=== PATIENT | male | born 1955 | race Caucasian/White ===

== ENCOUNTER 2021-08-03 18:48 | Emergency (ER) | payer OTHER, SELFPAY ==
[2021-08-03 19:35] VITALS: BP 139/87; PULSE 92; RESP 20; TEMP 37.4; O2SAT 95
[2021-08-04 05:27] LABS: Influenza A, PCR Not Detected (NotDetected); Influenza B, PCR Not Detected (NotDetected)
[2021-08-04 06:28] LABS: Coronavirus 19, PCR Detected (NotDetected)
== END 2021-08-03 19:42 | disposition left against medical advice (07) ==
LOC: ER 19:17
PROVIDERS: Emergency Provider Family Medicine; PCP Family Medicine
DX: U07.1 COVID-19 (principal)
CPT/HCPCS: 99211; C9803; U0003; U0005

== ENCOUNTER → 2021-08-04 04:25 | Outpatient (CLI) | payer OTHER, SELFPAY | PROVIDERS: Visit Provider Emergency Medicine | DX: Z20.822 Contact with and (suspected) exposure to COVID-19 (principal); U07.1 COVID-19 ==

== ENCOUNTER → 2021-08-06 14:31 | Outpatient (CLI) | payer OTHER, SELFPAY | PROVIDERS: Visit Provider Family Medicine | DX: S50.812A Abrasion of left forearm, initial encounter (principal); W55.03XA Scratched by cat, initial encounter | CPT/HCPCS: 87070; 87077; 87186; 87205 ==

== ENCOUNTER → 2021-10-29 17:58 | Outpatient (CLI) | payer OTHER, SELFPAY ==
[2021-10-29 18:44] LABS: Basophils % 0.6 % (0.1-2.0); Eosinophils # 0.3 K/mm3 (0.0-0.4); Eosinophils % 4.6 % (0.1-12.0); Hematocrit 42.9 % (42.0-52.0); Lymphocytes # 1.6 K/mm3 (0.7-4.5); Lymphocytes % 27.6 % (10-50); Mean Corpuscular HGB Conc 32.7 g/dL (31.8-35.4); Mean Corpuscular Hemoglobin 30.8 pg (27.0-31.2); Mean Platelet Volume 8.8 fl (7.4-10.4); Monocytes # 0.4 K/mm3 (0.1-1.0); Monocytes % 6.2 % (1.7-9.3); Neutrophils # 3.4 K/mm3 (1.8-7.8); Platelet Count 264 K/mm3 (142-424); Red Blood Count 4.57 M/mm3 (4.60-6.20); Red Cell Distribution Width 13.7 % (11.5-17.5); White Blood Count 5.6 K/mm3 (4.8-10.8)
[2021-10-29 19:09] LABS: Alanine Aminotransferase 20 U/L (12-78); Albumin Level 4.2 g/dl (3.5-5.0); Albumin/Globulin Ratio 1.8 (1.1-1.8); Alkaline Phosphatase 67 U/L (38-126); Anion Gap 8.6 mEq/L (5-15); Aspartate Amino Transferase 26 U/L (17-59); Bilirubin,Total 0.3 mg/dl (0.2-1.3); Blood Urea Nitrogen 21 mg/dl (9-20); Calcium 9.7 mg/dl (8.4-10.2); Carbon Dioxide 31 mmol/L (22.0-30.0); Chloride 104 mmol/L (98-107); Chol/HDL Ratio 4.2 (1-3.5); Cholesterol 173 mg/dl (140-200); Estimated Glomerular Filt Rate 74 ml/min (>60); GFR (African American) 90 ML/MIN (>60); Globulin 2.4 g/dL (1.3-3.2); Glucose 76 mg/dl (74-100); HDL Cholesterol 41 mg/dl (40-60); Potassium 4.6 mmoL/L (3.5-5.1); Sodium 139 mmol/L (136-145); Total Protein,Serum 6.6 g/dl (6.3-8.2); Triglycerides 184 mg/dl (30-150); VLDL Cholesterol 37 mg/dL (0-40)
[2021-10-29 19:20] LABS: Direct LDL Cholesterol 95.65 mg/dL (100-129)
[2021-10-29 19:39] LABS: Prostate Specific Ag Screen 2.5 ng/ml (0.0-4.0); Thyroid Stimulating Hormone 0.81 uIU/mL (0.465-4.68)
== END ==
PROVIDERS: Visit Provider Family Medicine
DX: Z00.00 Encounter for general adult medical examination without abnormal findings (principal); Z12.5 Encounter for screening for malignant neoplasm of prostate; Z79.899 Other long term (current) drug therapy
CPT/HCPCS: 80053; 80061; 84443; 85025; G0103

== ENCOUNTER 2022-02-10 16:30 | Outpatient (RCR) | payer OTHER, SELFPAY | END 2022-02-10 16:35 | disposition home or self-care (01) | LOC: PT 16:30 | PROVIDERS: Visit Provider Orthopaedic Surgery | DX: M17.12 Unilateral primary osteoarthritis, left knee (principal); Z96.652 Presence of left artificial knee joint | CPT/HCPCS: 97010; 97014; 97016; 97110; 97140; 97163; 97164; 97760; G0283 ==

== ENCOUNTER → 2022-07-13 11:02 | Outpatient (CLI) | payer MEDICARE, SELFPAY ==
[2022-07-13 11:09] LABS: Coronavirus 19, PCR Not Detected (NotDetected); Influenza A, PCR Not Detected (NotDetected); Influenza B, PCR Not Detected (NotDetected)
== END ==
PROVIDERS: PCP Family Medicine; Visit Provider Surgery
DX: D49.89 Neoplasm of unspecified behavior of other specified sites (principal); Z01.812 Encounter for preprocedural laboratory examination; Z20.822 Contact with and (suspected) exposure to COVID-19
CPT/HCPCS: C9803; U0003; U0005

== ENCOUNTER 2022-07-14 06:53 | Day surgery (SDC) | payer MEDICARE, SELFPAY ==
[2022-07-14 07:09] VITALS: BP 147/98; PULSE 75; RESP 18; TEMP 36.6; O2SAT 93; BMI 39.0
--- NOTE | 2022-07-14 08:00 | EXP.OP.NOTE ---
Date of procedure: 07/14/22 Pre-op Diagnosis:: Skin neoplasm of uncertain behavior (1.5 cm) of left upper chest Post-op Diagnosis:: Same Procedure performed:: Excision of 1.5 cm left upper chest skin lesion Surgeon:: Angel Rodriguez MD Anesthesia: local Estimated blood loss (mL): 10 Operative findings:: Skin lesion excised with 1 mm margin Operative note:: After informed consent was obtained the patient was taken to the procedure room. He was maintained in the supine position. His left upper chest/lower neck was prepped and draped in a sterile fashion. After infiltration of local anesthetic an elliptical incision was made around the lesion. A 1 mm margin was obtained. The deep subcutaneous tissue was sharply dissected with scalpel. The lesion was marked for margin with nylon suture (short superior/long lateral) prior to being passed off for pathologic evaluation. Electrocautery was utilized to achieve hemostasis. Skin was reapproximated with interrupted 4-0 nylon. Dressings were applied and the patient was discharged in stable condition. Condition: stable Disposition: no change Complications:: No immediate
[2022-07-14 08:25] VITALS: BP 119/71; PULSE 71; RESP 18; TEMP 36.6; O2SAT 100
== END 2022-07-14 08:15 | disposition home or self-care (01) ==
PROVIDERS: PCP Family Medicine; Visit Provider Surgery
DX: C44.519 Basal cell carcinoma of skin of other part of trunk (principal); I10 Essential (primary) hypertension; Z79.899 Other long term (current) drug therapy
CPT/HCPCS: 11602; 88305

== ENCOUNTER → 2022-10-04 14:38 | Outpatient (POV) | payer MEDICARE, SELFPAY | PROVIDERS: Visit Provider Dermatology | DX: Z00.00 Encounter for general adult medical examination without abnormal findings (principal) ==

== ENCOUNTER → 2023-02-14 14:13 | Outpatient (CLI) | payer MEDICARE, SELFPAY ==
[2023-02-14 19:50] LABS: Basophils # 0.1 K/mm3 (0-0.2); Eosinophils # 0.1 K/mm3 (0.0-0.4); Eosinophils % 2.7 % (0.1-12.0); Hematocrit 44.5 % (42.0-52.0); Hemoglobin 14.3 g/dL (14.1-18.0); Lymphocytes # 1.2 K/mm3 (0.7-4.5); Lymphocytes % 23.2 % (10-50); Mean Corpuscular HGB Conc 32.1 g/dL (31.8-35.4); Mean Corpuscular Hemoglobin 30.3 pg (27.0-31.2); Mean Corpuscular Volume 94.4 fl (80-94); Mean Platelet Volume 9.5 fl (7.4-10.4); Monocytes # 0.4 K/mm3 (0.1-1.0); Monocytes % 7.1 % (1.7-9.3); Neutrophils # 3.4 K/mm3 (1.8-7.8); Platelet Count 264 K/mm3 (142-424); Red Blood Count 4.72 M/mm3 (4.60-6.20); Red Cell Distribution Width 13.9 % (11.5-17.5); White Blood Count 5.2 K/mm3 (4.8-10.8)
[2023-02-14 20:56] LABS: Alanine Aminotransferase 20 U/L (12-78); Albumin Level 4.6 g/dl (3.5-5.0); Albumin/Globulin Ratio 1.8 (1.1-1.8); Alkaline Phosphatase 65 U/L (38-126); Anion Gap 12.7 mEq/L (5-15); Aspartate Amino Transferase 31 U/L (17-59); Bilirubin,Total 0.7 mg/dl (0.2-1.3); Blood Urea Nitrogen 14 mg/dl (9-20); Calcium 9.4 mg/dl (8.4-10.2); Carbon Dioxide 29 mmol/L (22.0-30.0); Chloride 100 mmol/L (98-107); Chol/HDL Ratio 5.5 (1-3.5); Cholesterol 164 mg/dl (140-200); Estimated Glomerular Filt Rate 84 ml/min (>60); GFR (African American) 101 ML/MIN (>60); Globulin 2.5 g/dL (1.3-3.2); Glucose 79 mg/dl (74-100); HDL Cholesterol 30 mg/dl (40-60); Potassium 4.7 mmoL/L (3.5-5.1); Sodium 137 mmol/L (136-145); Total Protein,Serum 7.1 g/dl (6.3-8.2); Triglycerides 120 mg/dl (30-150); VLDL Cholesterol 24 mg/dL (0-40)
[2023-02-14 21:07] LABS: Direct LDL Cholesterol 97.13 mg/dL (100-129)
[2023-02-14 21:29] LABS: Prostate Specific Ag Screen 2.7 ng/ml (0.0-4.0); Thyroid Stimulating Hormone 1.18 uIU/mL (0.465-4.68)
== END ==
PROVIDERS: PCP Family Medicine; Visit Provider Family Medicine
DX: C44.91 Basal cell carcinoma of skin, unspecified (principal); U07.1 COVID-19; R03.0 Elevated blood-pressure reading, without diagnosis of hypertension; R79.89 Other specified abnormal findings of blood chemistry; Z12.5 Encounter for screening for malignant neoplasm of prostate
CPT/HCPCS: 80053; 80061; 84443; 85025; G0103

== ENCOUNTER 2023-03-22 11:00 | Outpatient (RCR) | payer OTHER, SELFPAY | END 2023-03-22 11:05 | disposition home or self-care (01) | LOC: PT 11:00 | PROVIDERS: Visit Provider Orthopaedic Surgery | DX: M25.562 Pain in left knee (principal); Z96.652 Presence of left artificial knee joint | CPT/HCPCS: 97010; 97014; 97110; 97140; 97163; 97530; G0283 ==

== ENCOUNTER 2024-04-12 09:46 | Outpatient (CLI) | payer MEDICARE, SELFPAY ==
[2024-04-12 18:22] LABS: Basophils % 0.7 % (0.1-2.0); Eosinophils # 0.2 K/mm3 (0.0-0.4); Eosinophils % 4.4 % (0.1-12.0); Hemoglobin 15.1 g/dL (14.1-18.0); Lymphocytes # 1.2 K/mm3 (0.7-4.5); Lymphocytes % 23.7 % (10-50); Mean Corpuscular HGB Conc 32.7 g/dL (31.8-35.4); Mean Corpuscular Hemoglobin 30.9 pg (27.0-31.2); Mean Corpuscular Volume 94.6 fl (80-94); Mean Platelet Volume 9.9 fl (7.4-10.4); Monocytes # 0.4 K/mm3 (0.1-1.0); Monocytes % 7.8 % (1.7-9.3); Neutrophils # 3.3 K/mm3 (1.8-7.8); Neutrophils % 63.4 % (37.0-80.0); Platelet Count 247 K/mm3 (142-424); Red Blood Count 4.87 M/mm3 (4.60-6.20); Red Cell Distribution Width 13.9 % (11.5-17.5); White Blood Count 5.3 K/mm3 (4.8-10.8)
[2024-04-12 18:40] LABS: Alanine Aminotransferase 15 U/L (12-78); Albumin Level 4.4 g/dl (3.5-5.0); Albumin/Globulin Ratio 1.6 (1.1-1.8); Alkaline Phosphatase 58 U/L (38-126); Anion Gap 15.4 mEq/L (5-15); Aspartate Amino Transferase 22 U/L (17-59); Bilirubin,Total 0.7 mg/dl (0.2-1.3); Blood Urea Nitrogen 21 mg/dl (9-20); Calcium 9.9 mg/dl (8.4-10.2); Carbon Dioxide 26 mmol/L (22.0-30.0); Chloride 103 mmol/L (98-107); Cholesterol 203 mg/dl (140-200); Estimated Glomerular Filt Rate 74 ml/min (>60); GFR (African American) 89 ML/MIN (>60); Globulin 2.7 g/dL (1.3-3.2); Glucose 86 mg/dl (74-100); HDL Cholesterol 41 mg/dl (40-60); Potassium 4.4 mmoL/L (3.5-5.1); Sodium 140 mmol/L (136-145); Total Protein,Serum 7.1 g/dl (6.3-8.2); Triglycerides 125 mg/dl (30-150); VLDL Cholesterol 25 mg/dL (0-40)
[2024-04-12 19:03] LABS: Direct LDL Cholesterol 111.09 mg/dL (100-129)
[2024-04-12 19:12] LABS: Thyroid Stimulating Hormone 1.42 uIU/mL (0.465-4.68)
== END 2024-04-12 23:59 | disposition home or self-care (01) ==
LOC: LAB.DROPOF 04-16 09:47
PROVIDERS: PCP Family Medicine; Visit Provider Family Medicine
DX: C44.91 Basal cell carcinoma of skin, unspecified; Z12.5 Encounter for screening for malignant neoplasm of prostate; E07.9 Disorder of thyroid, unspecified; E78.5 Hyperlipidemia, unspecified
CPT/HCPCS: 80053; 80061; 84443; 85025; G0103

== ENCOUNTER 2024-09-10 06:21 | Day surgery (SDC) | payer MEDICARE, SELFPAY ==
[2024-09-06 14:14] VITALS: BMI 35.2
[2024-09-10 06:34] VITALS: BP 163/101; PULSE 77; RESP 18; TEMP 36.2; O2SAT 97
[2024-09-10] MEDS: LACTATED RINGERS 1000ML 1,000 ML 25 ML IV (06:43)
--- NOTE | 2024-09-10 07:07 | P.PCN_ITS ---
Procedure: Date: 09/10/24 Patient Date of :: 1955 Procedure Performed:: Colonoscopy with polypectomy Indications:: History of colon polyps Performing Provider:: Angel Rodriguez MD Referring Provider:: . Sedation:: Monitored anesthesia care Procedure:: After informed consent was obtained the patient was taken to the endoscopy suite. Sedation ensued after the patient was transferred to the left lateral d ecubitus position. Pulse, blood pressure, and oxygen saturation were monitored throughout the procedure. Digital rectal exam revealed no significant abnormality. The colonoscope was placed in position. The entire colon was evaluated. The colonoscope was carefully removed and the patient was transferred to recovery in stable condition. Please see findings and specimens below for detail. Findings:: Bowel preparation moderate Moderate spasticity Moderate tortuosity Hemorrhoidal cushions Sigmoid diverticulosis Polyps (see specimens) Specimens:: 3 adjacent periappendiceal polyps (cold biopsy forceps) Complex partially-pedunculated polyp at 60 cm (cold snare) Recommendations:: Timing of repeat colonoscopy is pending pathology will likely be between 3-5 years. Complications:: No immediate Estimated blood obtained (mL): 1 Colonoscopy Component Colonoscopy Component Was a colonoscopy performed during today's procedure?: Yes Recommended follow up colonoscopy of at least 10 years?: No If no, follow up colonoscopy recommended in ___ years?: (See above) Reason for not recommending >/= 10 yr follow-up interval?: (See above)
--- NOTE | 2024-09-10 07:13 | P.PNANES_ITS ---
[facility] Disclaimer: The information contained in this section may have been updated after the patient was seen, as this information can be updated by other users. Medical History Basal cell carcinoma History of COVID-19 Osteoarthritis Edema Hypertension Surgical History History of colonoscopy History of knee replacement History of appendectomy Family History Other Family history of arthritis Family history of diabetes mellitus type II Family history of hypertension Family history of stroke Social History (Updated 09/10/24 @ 06:41 by Katy Simon RN) Smoking Status: Former smoker alcohol intake: never substance use type: denies use current occupational status: retired Travel in the last 8 weeks: Inside the [place] caffeine: Yes [facility] Anesthesia Checklist Patient Identification Patient Identification: Arm Band and Verbal (Name & ) Structural Data Admitted From: Home Planned Operative Procedure/s: Colonoscopy Consent for Planned Operative Procedure(s) Verified: Yes Verified Documents: Surgical Consent and History and Physical NPO Status Verified Time NPO: 02:45 Chart Verification Results Verified: CBC and BMP Additional verifications Patient : No Anesthesia Reactions: No Cardiovascular Assessment Heart Sounds: S1 & S2 Pulse Rhythm: Irregular Peripheral Edema: No Airway Assessment Mallampati Score:: Class II C-Spine Mobility Assessed: Yes (FROM demonstrated) TMJ Mobility Assessed: Yes Dentition: Poor Dentition (Nothing loose per pt.) Neurological Assessment Level of Consciousness: Awake, Alert, Appropriate and Follows Commands Hx Seizures: No Numbness or tingling in extremities: No Anesthesia Plan Anesthesia Risk discussed: Yes Anesthesia Plan: Verified ASA Class: III Anesthesia Type: MAC
[2024-09-10 07:28] VITALS: O2SAT 97
[2024-09-10 08:06] VITALS: BP 122/73; PULSE 75; RESP 16; TEMP 36.2; O2SAT 98
[2024-09-10 08:16] VITALS: BP 118/85; PULSE 65; RESP 16; O2SAT 98
[2024-09-10 08:25] VITALS: BP 139/79; PULSE 79; RESP 16; O2SAT 98
[2024-09-10 08:36] VITALS: BP 121/75; PULSE 80; RESP 16; O2SAT 99
== END 2024-09-10 08:36 | disposition home or self-care (01) ==
PROVIDERS: PCP Family Medicine; Visit Provider Surgery
PROC: 0DJD8ZZ Inspection of Lower Intestinal Tract, Via Natural or Artificial Opening Endoscopic (ICD-10-PCS; CPT 45380; principal; 2024-09-10 07:30)
DX: Z12.11 Encounter for screening for malignant neoplasm of colon (principal); Z86.0100 Personal history of colon polyps, unspecified; K64.9 Unspecified hemorrhoids; K57.30 Diverticulosis of large intestine without perforation or abscess without bleeding; K63.5 Polyp of colon
CPT/HCPCS: 45380; 45385; 88305; J7120

== ENCOUNTER 2025-02-06 08:16 | Day surgery (SDC) | payer MEDICARE, SELFPAY ==
[2025-02-03 12:39] VITALS: BMI 34.3
[2025-02-06] MEDS: LIDOCAINE 1% 20ML MDV 20 ML (08:30)
[2025-02-06 08:39] VITALS: BP 128/83; PULSE 70; RESP 18; TEMP 36.6; O2SAT 96
[2025-02-06 09:22] VITALS: BP 140/94; PULSE 70; RESP 16; O2SAT 98
--- NOTE | 2025-02-06 09:22 | EXP.OP.NOTE ---
Date of procedure: 02/06/25 Pre-op Diagnosis:: Recurrent basal cell carcinoma anterior chest wall (6 mm) Post-op Diagnosis:: Same Procedure performed:: Excision of 6 mm recurrent basal cell carcinoma from anterior chest wall Surgeon:: Angel Rodriguez MD Anesthesia: local Estimated blood loss (mL): 10 Operative findings:: Lesion excised in toto Operative note:: After informed consent was obtained the patient was taken to the procedure room. He was maintained in the supine position. The upper chest region was prepped and draped in a sterile fashion. After infiltration with local anesthetic an elliptical incision was made around the lesion. The lesion was excised in toto and passed off for pathologic evaluation. Dissection was taken sharply into the deep subcutaneous tissue. Thermal cautery was utilized to achieve hemostasis. Skin was then reapproximated with 4-0 nylon in an interrupted mattress fashion. Dressings were applied and the patient was discharged home in stable condition. Condition: stable Disposition: no change Specimens:: Recurrent basal cell carcinoma anterior chest wall Complications:: No immediate
[2025-02-06 09:30] VITALS: BP 140/94; PULSE 70; RESP 16; O2SAT 98
== END 2025-02-06 09:30 | disposition home or self-care (01) ==
PROVIDERS: PCP Family Medicine; Visit Provider Surgery
PROC: (CPT 11601; principal; 2025-02-06 09:15)
DX: C79.2 Secondary malignant neoplasm of skin (principal); Z85.828 Personal history of other malignant neoplasm of skin; Z87.891 Personal history of nicotine dependence
CPT/HCPCS: 11601

== ENCOUNTER 2025-06-30 12:30 | Outpatient (CLI) | payer MEDICARE, SELFPAY ==
[2025-06-30 15:12] LABS: Hematocrit 44.4 % (42.0-52.0); Hemoglobin 14.4 g/dL (14.1-18.0); Immature Granulocytes % 0.8 %; Mean Corpuscular HGB Conc 32.4 g/dL (31.8-35.4); Mean Corpuscular Hemoglobin 29.8 pg (27.0-31.2); Mean Corpuscular Volume 91.9 fl (80-94); Nucleated Red Blood Cells % 0 %; Platelet Count 231 K/mm3 (142-424); Red Blood Count 4.83 M/mm3 (4.60-6.20); Red Cell Distribution Width-SD 43.5 fL; White Blood Count 4.7 K/mm3 (4.8-10.8)
[2025-06-30 15:40] LABS: Alanine Aminotransferase 29 U/L (12-78); Albumin Level 4.4 g/dl (3.5-5.0); Albumin/Globulin Ratio 1.8 (1.1-1.8); Alkaline Phosphatase 58 U/L (38-126); Anion Gap 9.7 mEq/L (5-15); Aspartate Amino Transferase 28 U/L (17-59); Bilirubin,Total 0.5 mg/dl (0.2-1.3); Blood Urea Nitrogen 19 mg/dl (9-20); Calcium 9.6 mg/dl (8.4-10.2); Carbon Dioxide 27 mmol/L (22.0-30.0); Chloride 106 mmol/L (98-107); Cholesterol 182 mg/dl (140-200); Creatinine,Serum 0.80 mg/dl (0.66-1.25); Estimated Glomerular Filt Rate 95 ml/min (>60); GFR (African American) 115 ML/MIN (>60); Globulin 2.4 g/dL (1.3-3.2); Glucose 87 mg/dl (74-100); HDL Cholesterol 39 mg/dl (40-60); Potassium 4.7 mmoL/L (3.5-5.1); Sodium 138 mmol/L (136-145); Total Protein,Serum 6.8 g/dl (6.3-8.2); Triglycerides 95 mg/dl (30-150)
[2025-06-30 16:11] LABS: Thyroid Stimulating Hormone 1.53 uIU/mL (0.465-4.68)
--- OUTSIDE RECORDS SUMMARY | 2025-07-01 10:54 | XMS_ITS | Encounter Summary ---
Author Organization [facility] Address [address], [address] [place] [address] Care Team Providers Care Kelly Machine Operator Name Role Phone Tyrese South MD Primary Care Provider [phone] Encounter Details Date Type Department Care Team (Late st Contact Info) Description 09/26/2017 Telephone [facility] [address] [place] [address] Lamont Rosenberg MD [address] [place], [place] [address] Social History Tobacco Use Types Packs/Day Years Used Date Smoking Tobacco: Never Smokeless Tobacco: Current Alcohol Use Standard Drinks/Week Comments No 0 (1 standard drink = 0.6 oz pur e alcohol) Sex and Gender Information Value Date Recorded Sex Assigned at Not on file Legal Sex Male 5:57 AM EST Gender Identity Not on file Sexual Orientation Not on file 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
--- OUTSIDE RECORDS SUMMARY | 2025-07-01 10:54 | XMS_ITS | Clinical Summary ---
Author Organization [facility] Address [address] [place] [phone] Care Team Providers Care Disc Pad Plate Filler Name Role Phone Tyrese South MD Primary Care Provider [phone] Allergies No known active allergies Medications ondansetron (ZOFRAN-ODT) 4 MG TBDP Take 1 tablet by mouth every 8 (eight) hours as needed. 30 tablet 04/01/2020 Active meclizine (ANTIVERT) 25 MG TABS Take 1 tablet by mouth every 6 (six) hours as needed. 20 tablet 04/01/2020 Active Social History Tobacco Use Types Packs/Day Years Used Date Smoking Tobacco: Never Smokeless Tobacco: Former Chew Quit: 06/01/2016 Alcohol Use Standard Drinks/Week Comments Never 0 (1 standard drink = 0.6 oz pur e alcohol) AUDIT-C Answer Date Recorded Q1: How often do you have a drink containing alc ohol? Never 04/01/2020 Average Number of Drinks Not on file 020 Frequency of Binge Drinking Not on file 03/20 Sex and Gender Information Value Date Recorded Sex Assigned at Not on file Legal Sex Male 11:38 AM EDT Gender Identity Not on file Sexual Orientation Not on file Last Filed Vital Signs Vital Sign Reading Time Taken Comments Blood Pressure 154/91 04/01/2020 7:24 PM EDT Pulse 79 04/01/2020 7:24 PM EDT Temperature 36.4 C (97.6 F) 04/01/2020 3:52 PM EDT Respiratory Rate 14 04/01/2020 7:24 PM EDT Oxygen Saturation 98% 04/01/2020 6:17 PM EDT Inhaled Oxygen Concentration - - Weight 106.6 kg (235 lb) 04/01/2020 3:52 PM EDT Height 175.3 cm (5' 9 ) 04/01/2020 3:52 PM EDT Body Mass Index 34.7 04/01/2020 3:52 PM EDT Plan of Treatment Health Maintenance Due Date Last Done Comments Hepatitis C Screening 1955 DTap,Tdap,and Td (1 - Tdap) 1964 Colonoscopy 1998 PSA YEARLY 2003 Pneumococcal 50+ (1 of 1 - PCV) 2003 Shingrix (#1) 2003 Influenza Vaccine (#1) 2025 RSV Vaccine (60+ or ) (1 - 1-dose 75+ series) 2028 HPV Aged Out No longer eligi ble based on patient's age to complete this topic Meningococcal conjugate luiz nt 4 (MCV4) Aged Out No longer eligible b ased on patient's age to complete this topic RSV Immunization (<20 months) Aged Out No longer eligible based on patient's age to complete this topic Care Teams Disc Pad Plate Filler Relationship Specialty Start Date End Date Tyrese South MD PCP - General Family Medicine 04/01/20
--- OUTSIDE RECORDS SUMMARY | 2025-07-01 10:54 | XMS_ITS | Referral Summary ---
Author Organization [facility] Address [address] [place] [phone] Care Team Providers Care Winderman Name Role Phone Tyrese South MD Primary Care Provider [phone] Allergies No known active allergies Medications ondansetron [...] 04/01/2020 3:52 PM EDT Plan of Treatment Not on file Care Teams Winderman Relationship Specialty Start Date End Date Tyrese South MD PCP - General Family Medicine 04/01/20
--- OUTSIDE RECORDS SUMMARY | 2025-07-01 10:54 | XMS_ITS | Clinical Summary ---
Author Organization [facility] Address [address] [place] [address] Care Team Providers Care Wheel Aligner Name Role Phone Unavailable Primary Care Provider Unavailabl e Source Comments This information has been disclosed to you from confidential records protectedfrom disclosure by state law. You shall make no further disclosure of thisinformation without the specific, written, and informed release of theindividual to whom it pertains, or as otherwise permitted by law. A generalauthorization for the release of medical or other information is not sufficientfor the purposes of therelease of HIV test results or diagnoses. [id number] Social History Tobacco Use Types Packs/Day Years Used Date Smoking Tobacco: Never Assessed Sex and Gender Information Value Date Recorded Sex Assigned at Not on file Legal Sex Male 10:20 PM EST Gender Identity Not on file Sexual Orientation Not on file Plan of Treatment Not on file
--- OUTSIDE RECORDS SUMMARY | 2025-07-01 10:54 | XMS_ITS | Clinical Summary ---
Author Organization [facility] Address [address], [address] [place] [address] Care Team Providers Care Jewelry Coater Name Role Phone Tyrese South MD Primary Care Provider [phone] Allergies No known active allergies Medications losartan (COZAAR) 100 MG tablet Take 1 tablet by mouth daily 1 Active zinc 50 MG CAPS Take by mouth Active Cholecalciferol (VITAMIN D-3 PO) Take 5,000 mg by mouth daily Active ALFALFA PO Take 860 mg by mouth daily Active Chromium Picolinate 200 MCG CAPS Take by mouth Active Calcium-Magnesi um-Vitamin D (CALCIUM MAGNESIUM PO) Take by mouth daily Calcium-1000mg and magnesium 500mg Active Misc Natural Products (COMPLETE PROSTATE HEALTH) TABS Take by mouth Act yojana Probiotic Product (PROBIOTIC-10 PO) Take by mouth daily Active Acetaminophen (TYLENOL) 325 MG CAPS Take by mouth Patient takes he takes 1500 nightly Active Bioflavonoid Products (QUERCETIN COMPLEX IMMUNE PO) Take 500 mg by mouth nightly Active TURMERIC PO Take 665 mg by mouth daily Active aspirin EC 81 MG EC tablet Take 1 tablet by mouth 2 times daily Take for DVT blood clot prophylaxis. Please avoid missing doses. 60 tablet 1 Active meloxicam (MOBIC) 7.5 MG tablet Take 1 tablet by mouth daily for 5 days 5 tablet 1 Active pregabalin (LYRICA) 75 MG capsuleIndicati ons:Arthritis of left knee Take 1 capsule by mouth 2 times daily for 14 days. 28 capsule 1 Active Active Problems Problem Noted Date Diagnosed Date Arthritis of left knee 11/09/2021 Derangement of other medial meniscus due to old tear or injury, left knee 05/17/2017 Primary osteoarthritis of left knee 09/10/2015 Shoulder pain, acute 03/20/2014 Rotator cuff (capsule) sprain 03/20/2014 Sprain and strain of unspecified site of knee an d leg 11/01/2011 Current tear of lateral cartilage or meniscus of knee 11/01/2011 Localized osteoarthrosis, lower leg 11/01/2011 Other and unspecified derangement of medial meni scus 11/01/2011 Resolved Problems Problem Noted Date Diagnosed Date Resolved Date Sprain and strain of unspeci fied site of knee and leg 07/13/2011 02/11/2020 Tear of lateral cartilage or meniscus of knee, current 07/13/2011 02/11/2020 Localized osteoarthrosis, lower leg 07/13/2011 02/11/2020 Other and unspecified derang ement of medial meniscus 07/13/2011 02/11/2020 Sprain and strain of unspeci fied site of knee and leg 03/01/2010 02/11/2020 Tear of lateral cartilage or meniscus of knee, current 03/01/2010 02/11/2020 Localized osteoarthrosis, lower leg 03/01/2010 02/11/2020 Other and unspecified derang ement of medial meniscus 03/01/2010 02/11/2020 Encounters Date Type Department Care Team Description 04/07/2025 2:40 PM EDT Ancillary Procedure [facility] [address] [place] [address] [place] [phone] Status post total left knee replacement 04/07/2025 2:30 PM EDT Office Visit [facility] [address] [place] [address] [place] [phone] Donald Steele MD Status post total left knee replacement (Primary Dx) from Last 3 Months Family History Medical History Relation Name Comments Arthritis Mother Diabetes Mother High Blood Pressure Mother Stroke Mother Relation Name Status Comments Father (Age 70) Mother (Age 73) Social History Tobacco Use Types Packs/Day Years Used Date Smoking Tobacco: Never Smokeless Tobacco: Former Chew Quit: 06/01/2016 Tobacco Cessation:Counseling Given: Yes Alcohol Use Standard Drinks/Week Comments No 0 (1 standard drink = 0.6 oz pur e alcohol) Sex and Gender Information Value Date Recorded Sex Assigned at Not on file Legal Sex Male 5:57 AM EST Gender Identity Not on file Sexual Orientation Not on file 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 on file Not o n file Last Filed Vital Signs Vital Sign Reading Time Taken Comments Blood Pressure 117/85 11/10/2021 11:14 AM EST Pulse 84 11/10/2021 11:14 AM EST Temperature 36.9 C (98.5 F) 11/10/2021 11:14 AM EST Respiratory Rate 16 01/24/2022 9:37 AM EST Oxygen Saturation 98% 11/10/2021 11:14 AM EST Inhaled Oxygen Concentration - - Weight 113.4 kg (250 lb) 04/07/2025 2:33 PM EDT Height 177.8 cm (5' 10 ) 04/07/2025 2:33 PM EDT Body Mass Index 35.87 04/07/2025 2:33 PM EDT Plan of Treatment Health Maintenance Due Date Last Done Comments Depression Screen 1965 Hepatitis C screen 1971 Lipids 1993 Colonoscopy 1998 Colorectal Cancer Screen 1998 FIT/FOBT: Average risk 1998 Fecal-DNA (Cologuard): [place] ge risk 1998 Sigmoidoscopy/CT colonography 1998 Pneumococcal 50+ years Vacci ne (1 of 1 - PCV) 2003 Shingles vaccine (1 of 2) 2003 COVID-19 Vaccine ( - 2023-2 5 season) 2024 Annual Wellness Visit (Medic are Advantage) 11/20/2024 Flu vaccine (#1) 06/20/2025 Respiratory Syncytial Virus (RSV) or age 60 yrs+ (1 - 1-dose 75+ series) 2028 DTaP/Tdap/Td vaccine (2 - Td or Tdap) 07/26/2031 07/26/2021 Diabetes screen Discontinued 11/01/2021 Hepatitis A vaccine Aged Out No longe r eligible based on patient's age to complete this topic Hepatitis B vaccine Aged Out No longe r eligible based on patient's age to complete this topic Hib vaccine Aged Out No longer eligi ble based on patient's age to complete this topic Meningococcal (ACWY) vaccine Aged Out No longer eligible based on patient's age to complete this topic Meningococcal B vaccine Aged Out No l onger eligible based on patient's age to complete this topic Polio vaccine Aged Out No longer elig ible based on patient's age to complete this topic Medical Devices Implanted Type Area Manager Of Digital Device Identifier Shelf Expiration Date Model / Serial / Lot Impl Knee Patella 38mm Asymmetric Tritan Implanted:Qty: 1 on 11/09/2021 by Donald Steele MD at [facility] Knee Left: Knee SHAYLEE: [facility] 07/14/2026 [id number] / / [id number] Baseplate Tib Sz 7 Ap56mm Ml80mm Knee Tritanium 4 Crucfrm Implanted:Qty: 1 on 11/09/2021 by Donald Steele MD at [facility] Left: Knee [employer] [facility] 06/07/2026 [id number] / / [id number] Component Fem Sz 6 L Knee Cruce Ret Cementless Bead W/ Latoya Implanted:Qty: 1 on 11/09/2021 by Donald Steele MD at [facility] Left: Knee [employer] [facility] 08/16/2026 [id number] / / [id number] Insert Tib Bear Sz 7 Thk9mm Knee X3 Cndyl Stabilizing Implanted:Qty: 1 on 11/09/2021 by Donald Steele MD at [facility] Left: Knee [employer] [facility] 06/23/2026 [id number] / / [id number] Procedures Procedure Name Priority Date/Time Associated Diagnosis Comments XR KNEE LEFT (3 VIEWS) Routine 04/07/2025 2:59 PM EDT Status post total left knee replacement HEMOGLOBIN A1C Routine 11/01/2021 11:40 AM EST Primary osteoarthritis of left knee from Last 3 Months or Most Recently Relevant to Health Maintenance Results * XR KNEE LEFT (3 VIEWS) (04/07/2025 2:59 PM EDT) Narrative [facility] - 04/07/2025 2:59 PM EDT Radiology exam is complete. No Radiologist dictation. Please follow up with ordering provider. Donald Steele MD IMG DIAGNOSTIC IMAGING ORDERABLE S Final Result [facility] * Hemoglobin A1C (11/01/2021 11:40 AM EST) Hemoglobin A1C 5.0 See comment % 11/01/2021 2:59 PM EST [facility] Comment: Comment: Diagnosis of Diabetes: > or = 6.5% Increased risk of diabetes (Prediabetes): 5.7-6.4% Glycemic Control: Non Adults: <7.0% : <6.0% Estimated Avg Glucose 96.8 mg/dL 11/01/2021 2:59 PM EST [facility] BLOOD SPECIMEN / Unknown 11/01/2021 11:40 AM EST 11/01/2021 12:22 PM EST Narrative [facility] - 11/01/2021 2:59 PM EST Performed at: [facility] [address] [place] [address] Donald Steele MD CHEMISTRY ORDERABLES Final Resul t [facility] [place] [address], [facility] [phone] from Last 3 Months or Most Recently Relevant to Health Maintenance Insurance 3-HAB 3-HAB 3-HAB 3-HAB [employer] MEDICARE Advance Directives * Full Code (Latest Code Status on File) Date Activated Date Inactivated Comments 11/09/2021 3:06 PM 11/10/2021 5:16 PM Healthcare Agents on File Name Relationship Healthcare Agent Relationshi p Communication Yumiko Herrera Child Primary Decision Maker Spencer Tucker Other Secondary Decision Maker Care Teams Jewelry Coater Relationship Specialty [place] [address] [place] [address] [place] [address] PCP - General Family Medicine 11/01/21
== END 2025-06-30 23:59 | disposition home or self-care (01) ==
LOC: LAB.DROPOF 07-01 10:48
PROVIDERS: PCP Family Medicine; Visit Provider Family Medicine
DX: C44.519 Basal cell carcinoma of skin of other part of trunk (principal); I10 Essential (primary) hypertension; R60.9 Edema, unspecified; M19.90 Unspecified osteoarthritis, unspecified site; Z12.5 Encounter for screening for malignant neoplasm of prostate
CPT/HCPCS: 80053; 80061; 84443; 85025; G0103

== ENCOUNTER 2025-07-23 14:34 | Outpatient (CLI) | payer MEDICARE, SELFPAY | END 2025-07-23 23:59 | LOC: LAB.DROPOF 07-25 08:17 | PROVIDERS: PCP Nurse Practitioner; Visit Provider Nurse Practitioner | DX: L03.116 Cellulitis of left lower limb (principal); L02.416 Cutaneous abscess of left lower limb | CPT/HCPCS: 87070; 87205 ==

== ENCOUNTER 2025-07-26 12:00 | Emergency (ER) | payer MEDICARE, SELFPAY ==
--- OUTSIDE RECORDS SUMMARY | 2025-07-26 12:06 | XMS_ITS | Encounter Summary ---
Author Organization [facility] 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
--- OUTSIDE RECORDS SUMMARY | 2025-07-26 12:06 | XMS_ITS | Referral Summary ---
Author Organization [facility] Address [address] [place] [phone] Care Team Providers Care Fish Flipper Name Role Phone Tyrese South MD Primary Care Provider [phone] Allergies No known active allergies Medications ondansetron [...] of Treatment Not on file Care Teams Fish Flipper Relationship Specialty Start Date End Date Tyrese South MD PCP - General Family Medicine 04/01/20
--- OUTSIDE RECORDS SUMMARY | 2025-07-26 12:06 | XMS_ITS | Clinical Summary ---
Author Organization [facility] Address [address] [place] [phone] Care Team Providers Care Track Surfacing Machine Operator Name Role Phone Tyrese South MD Primary Care Provider [phone] Allergies No known active allergies Medications ondansetron [...] age to complete this topic Care Teams Track Surfacing Machine Operator Relationship Specialty Start Date End Date Tyrese South MD PCP - General Family Medicine 04/01/20
--- OUTSIDE RECORDS SUMMARY | 2025-07-26 12:06 | XMS_ITS | Clinical Summary ---
Author Organization [facility] Address [address] [place] [address] Care Team Providers Care Equipment Validation Engineer Name Role Phone Unavailable Primary Care Provider [...] therelease of HIV test results or diagnoses. [id number] Social History Tobacco Use Types Packs/Day Years Used Date Smoking Tobacco: Never Assessed Sex and Gender Information Value Date Recorded Sex Assigned at Not on file Legal Sex Male 10:20 PM EST Gender Identity Not on file Sexual Orientation Not on file Plan of Treatment Not on file
--- OUTSIDE RECORDS SUMMARY | 2025-07-26 12:06 | XMS_ITS | Clinical Summary ---
Author Organization [facility] 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 Not on file Not on file Not [...] 1998 FIT/FOBT: Average risk 1998 Fecal-DNA (Cologuard): [place] ge risk 1998 Sigmoidoscopy/CT colonography 1998 Pneumococcal [...] this topic Medical Devices Implanted Type Area Wash Tub Machine Operator Device Identifier Shelf Expiration Date Model / Serial / Lot Impl Knee Patella 38mm Asymmetric Tritan Implanted:Qty: 1 on 11/09/2021 by Donald Steele MD at [facility] Knee Left: Knee SHAYLEE: [facility] 07/14/2026 [id number] / / [id number] Baseplate Tib Sz 7 Ap56mm Ml80mm Knee Tritanium 4 Crucfrm Implanted:Qty: 1 on 11/09/2021 by Donald Steele MD at [facility] Left: Knee [employer] [facility] 06/07/2026 [id number] / / [id number] Component Fem Sz 6 L Knee Cruce Ret Cementless Bead W/ Latoya Implanted:Qty: 1 on 11/09/2021 by Donald Steele MD at [facility] Left: Knee [employer] [facility] 08/16/2026 [id number] / / [id number] Insert Tib Bear Sz 7 Thk9mm Knee X3 Cndyl Stabilizing Implanted:Qty: 1 on 11/09/2021 by Donald Steele MD at [facility] Left: Knee [employer] [facility] 06/23/2026 [id number] / / [id number] Procedures Procedure Name Priority Date/Time Associated Diagnosis Comments HEMOGLOBIN A1C Routine 11/01/2021 11:40 AM EST Primary osteoarthritis of left knee from Last 3 Months or Most Recently Relevant to Health Maintenance Results * Hemoglobin A1C (11/01/2021 11:40 AM EST) Hemoglobin A1C 5.0 See comment % 11/01/2021 2:59 PM EST [facility] Comment: Comment: Diagnosis of Diabetes: > or = 6.5% Increased risk of diabetes (Prediabetes): 5.7-6.4% Glycemic Control: Non Adults: <7.0% : <6.0% Estimated Avg Glucose 96.8 mg/dL 11/01/2021 2:59 PM EST [facility] BLOOD SPECIMEN / Unknown 11/01/2021 11:40 AM EST 11/01/2021 12:22 PM EST Narrative [facility] - 11/01/2021 2:59 PM EST Performed at: [facility] [address], [place] [address] us Donald Steele MD CHEMISTRY ORDERABLES Final Resul t [facility] [address] [place] [address], [facility] [phone] from Last 3 Months or Most Recently Relevant to Health Maintenance Insurance 3-[facility] 3-[facility] 3-HAB 3-HAB [facility] MEDICARE Advance Directives * Full Code (Latest Code Status on File) Date Activated Date Inactivated Comments 11/09/2021 3:06 PM 11/10/2021 5:16 PM Healthcare Agents on File Name Relationship Healthcare Agent [facility] Communication Yumiko Herrera Child Primary Decision Maker Spencer Tucker Other Secondary Decision Maker Care Teams Checkout Operator Relationship Specialty [place] [address] [place] [address] [place] [address] PCP - General Family Medicine 11/01/21
[2025-07-26 12:11] VITALS: BP 162/92; PULSE 96; RESP 18; TEMP 36.7; TEMP 37.3; O2SAT 98; BMI 34.9
--- NOTE | 2025-07-26 12:23 | ED_ITS ---
<Statement entered by Cale Wells DO - 07/26/25 17:11> I was consulted by the CHRISTINA, and we discussed the complexity of problems being addressed. I approved the treatment and management plan for this patient's care in the emergency department, thus performing a substantive portion of the medical decision making. I independently evaluated this patient and obtained collateral history. Patient states that he has been taking doxycycline for the last 3 days for a reported staph infection behind the posterior aspect of his left knee. He did see his primary care provider who prescribed doxycycline and was able to drain purulence from this lesion. He tells me that he is concerned that there is remaining purulence within the wound and he is also concerned that the black eschar in the middle of this wound does not resolving. He shows me pictures of the progression of this wound and that the erythema does not seem to have particularly worsened, however it has also not improved. We did proceed with hematologic labs including blood cultures and inflammatory markers. He had no evidence of leukocytosis, inflammatory markers were normal, and blood cultures are currently pending. I did do a bedside POCUS assessment and I do not appreciate any gas in the soft tissues and there is no drainable fluid collection. There is evidence of cellulitis which is consistent with my physical exam. We discussed multiple options moving forward including admission of the hospital for IV antibiotics and the patient wished to decline at this time. I do feel that this is reasonable given that he is not experiencing evidence of systemic illness. Therefore, we decided to change his medication regimen to Bactrim for the next 7 days. I have given him strict return precautions in the event that he develops fever, spreading of erythema, or development of purulence. Patient knowledges understanding. All questions were answered and all parties were agreeable with the decision to discharge home. Cale Wells DO Please see POCUS note below for POCUS assessment performed on the patient. Limited soft tissue ultrasound Indication: Soft tissue erythema Identified structures: Skin and subcutaneous tissue Location: Posterior aspect of left knee Findings: Edema in the soft tissues compatible with cellulitis with no discernible fluid collection that would be amenable to drainage Impression: Cellulitis Images were saved to permanent archive This study was technically adequate Soft tissue CPT codes Neck: 00718-64 Upper extremity: 99547?26 Axilla: 60567-41 Chest wall: 15759-85 Breast: 7664 1-2 6 (complete), 38954-80-LF (Limited) Upper back: 13166-02 Abdominal wall: 83088-20 Pelvic wall: 40172-12 Lower extremity: 96570-17 Other soft tissue: 72240-96 This study was performed by me and I personally interpreted all images/videos. Based on my clinical judgment these images were [adequate/inadequate] and [did/did not] necessitate further imaging. Discharge Plan Disposition Patient Disposition: Home, Self-Care Condition: Good Prescriptions Prescriptions: New sulfamethoxazole-trimethoprim [Bactrim DS] 800-160 mg tablet 1 tab PO BID 10 Days Qty: 20 0RF No Action doxycycline hyclate 100 mg tablet 100 mg PO BID Qty: 20 0RF Referrals Follow up/Referrals: Tyrese South MD [Primary Care Provider, Family Practice] - See instructions Activity Restrictions/Add. Instructions Additional Instructions/Restrictions: Please return to PCP for possible wound care if needed. Start taking the Bactrim tomorrow. You may stop taking the doxycycline. Return to ED if any worsening signs or symptoms. Clinical Impressions Clinical Impression: Wound cellulitis Instructions Patient Instructions: Cellulitis Print Language Print Language: Occitan Discharge ED Provider: Cale Wells General Adult HPI <Joleen Ovalle (ED), [place]. REPRESENTATIVE - Last Filed: 07/26/25 17:28> General Chief complaint: Skin/Abscess/Foreign Body Stated complaint: Sore on back of L upper leg Time Seen by Provider: 07/26/25 12:14 Mode of Arrival: Ambulatory Source of Information: Patient Description of Symptoms (Recalled from ER Triage Doc. by RN): Patient presents to ED for sore on the back of left calf. Patient reports this has been there since 07/15, began as what he thought was a chigger bite but persisted to get worse. Appears to have a large black dot in the center with redness and swelling surrounding. Denies pain. History of Present Illness HPI narrative: 70-year-old male presents to the ED today for a necrotic appearing area on the back of his left knee. Patient reports it has been there since 07/15/2025. He says it began as a bump then the next day he squeezed it. By the next Monday it looked so bad he went to the PCP states squeezed it and got toothpaste appearing drainage out of it. They swabbed that did a wound culture and it was positive for Staphylococcus haemophilus. Before they got the swab out they put him on doxycycline and he has been taking that. Today the center is black and has blisters. Patient denies any fevers, chills, nausea or vomiting. He appears well. Related Data Previous Rx's ?Medication ?Instructions ?Recorded doxycycline hyclate 100 mg tablet 100 mg PO BID #20 ta bs 07/23/25 sulfamethoxazole 800 1 tab PO BID 10 days #20 tab s 07/26/25 mg-trimethoprim 160 mg tablet (Bactrim DS) Allergies Allergy/AdvReac Type Severity Reaction Status Date / Time No Known Allergies Allergy Verified 07/23/25 14:16 [facility] <Joleen Ovalle (ED), U.[place]. REPRESENTATIVE - Last Filed: 07/26/25 17:28> [facility] Disclaimer: The information contained in this section may have been updated after the patient was seen, as this information can be updated by other users. Medical History Basal cell carcinoma History of COVID-19 Osteoarthritis Edema Hypertension Surgical History H/O removal of cyst History of colonoscopy History of knee replacement LEFT History of appendectomy Family History Other Family history of arthritis Family history of diabetes mellitus type II Family history of hypertension Family history of stroke Thyroid cancer Social History Smoking Status: Never smoker alcohol intake: never substance use type: denies use current occupational status: retired Travel in the last 8 weeks?: None caffeine: Yes Have you lived/traveled outside US in past 30 days?: No Contact w/someone who lives/traveled outside US past 30 days?: No Exposure to someone with infectious disease in past 14 days?: No Do you have a fever (greater than 100.4 F or 38 C)?: No Have you tested positive for COVID-19?: No Exposed to someone with COVID-19 in past 14 days?: No Do you have a sore throat?: No Do you have a cough?: No Do you have any weakness?: No Do you have any diarrhea?: No Are you experiencing any unusual bleeding?: No Do you have any muscle aches/pain?: No Do you have any abdominal pain?: No Are you experiencing loss of taste or smell?: No Other Medical History Have you received the Pneumonia Vaccine: No <Joleen Ovalle (ED), U.[place]. REPRESENTATIVE - Last Filed: 07/26/25 17:28> ROS Obtained: Yes Systems reviewed as appropriate & no additional complaints except as documented Physical Exam <Joleen Ovalle (ED), U.S. REPRESENTATIVE - Last Filed: 07/26/25 17:28> General General appearance: alert and in no apparent distress Head Head exam: normocephalic Eye Eye exam: Present PERRL and EOMI ENT ENT exam: Present mucous membranes moist Neck Neck exam: Present full ROM and trachea midline Respiratory Respiratory exam: Present normal lung sounds bilaterally Cardiovascular Cardiovascular exam: Present regular rate, normal rhythm, normal heart sounds, +S1 and +S2 Extremities Exam Extremities exam: Present full ROM, normal capillary refill and other (Wound appears black in the center with a hole and blisters around the center, wound on the back of the knee) Neurological Exam Neurological exam: Present alert and oriented X3 Skin Skin exam: Present warm, dry and other (Wound on the back of the knee has a black center with a hole in blisters around the center) Medical Decision Making <Joleen Ovalle (ED), U.[place]. REPRESENTATIVE - Last Filed: 07/26/25 17:28> Medical Records Screening: Per USPSTF and CDC recommendations, given the prevalence of disease in our region, it is our hospital?s policy to screen for HIV and viral Hepatitis for all patients aged 18 and over and those with ongoing risk factors. [place] Inquiry Pt receiving controlled substance: No [place] was queried for this patient: No Vital Signs: 07/26/25 12:11 07/26/25 12:11 07/26/25 14:28 Temperature 98.1 F 99.1 F 99.1 F Temperature Source Oral Oral Pulse Rate 96 H 92 H Pulse Rate [Right] 96 H Respiratory Rate 18 18 18 Blood Pressure 162/92 H 158/89 H Blood Pressure [Left Arm] 162/92 H Blood Pressure Mean [Left Arm] 115 Blood Pressure Source Automatic Cuff Blood Pressure Position Sitting 02 Sat by Pulse Oximetry 98 98 Oxygen Delivery Method Room Air Lab Data Lab Results 07/26/25 13:00: WBC 5.1, RBC 4.71, Hgb 14.6, Hct 42.9, MCV 91.1, MCH 31.0, MCHC 34.0, RDW 13.0, Plt Count 210, MPV 10.1, Neut % (Auto) 67.6, Lymph % (Auto) 21.7, [place] % (Auto) 7.3, Eos % (Auto) 2.4, Baso % (Auto) 0.4, Neut # (Auto) 3.4, Lymph # (Auto) 1.1, [place] # (Auto) 0.4, Eos # (Auto) 0.1, Baso # (Auto) 0.0, ESR 1, Sodium 141, Potassium 4.0, Chloride 106, Carbon Dioxide 28, Anion Gap 11.0, BUN 18, Creatinine 0.90, Estimated Creat Clear 105, Estimated GFR 83, Est GFR ( Amer) 100, Glucose 99, Calcium 9.9, Magnesium 1.9, Total Bilirubin 0.6, AST 29, ALT 21, Alkaline Phosphatase 48, Total Protein 7.3, Albumin 4.7, Globulin 2.6, Albumin/Globulin Ratio 1.8 07/26/25 13:00 07/26/25 13:00 Orders (Tests/Meds): ED MEDICATIONS Discontinued Medications Generic Name Dose Route Start Last Admin Trade Name Freq PRN Reason Stop Dose Admin Trimethoprim/Sulfamethoxazole 1 each 07/26/25 14:15 07/26/25 14:20 Sulfa/Trimethoprim 1 Tablet PO 07/26/25 14:16 1 each ONCE ONE Administration ORDERS Category Date Time Status Knee XR left 3 views [XR knee LT 3V] Stat Exams 07/26/25 12:26 Completed POCUS Point of Care (ER Only) Stat Exams 07/26/25 12:25 Completed CBC w/Auto Diff [Complete Blood Count Auto Diff] Stat Lab 07/26/25 13:00 Completed Comprehensive Metabolic Panel Stat Lab 07/26/25 13:00 Completed Erythrocyte Sedimentation Rate Stat Lab 07/26/25 13:00 Completed Magnesium Stat Lab 07/26/25 13:00 Completed Blood Culture Stat Micro 07/26/25 13:25 Received Medical Decision Narrative: patient is a 70-year-old male presenting to the emergency department for evaluation of wound on the back of his knee. Patient is hemodynamically stable and nontoxic-appearing upon arrival, afebrile. Differential diagnosis includes necrotic wound, cellulitis, among others. Workup will be conducted with hematologic labs, specific imaging. Initial inventions include antibiotics. Initial workup reviewed by me hematologic labs are nonactionable. Dr. Wells did a bedside POCUS, please see his report. Discussed with Dr. Wells who wants to do Bactrim for home. Patient will follow-up with PCP for further management care. Workup here has been nonactionable. Patient may need to do wound care if wound gets worse and not better. Patient safe for wound care. <Cale Wells, - Last Filed: 07/26/25 17:17> Medical Records Medical records reviewed: Yes I reviewed the patient's medical records. Vital Signs: 07/26/25 12:11 07/26/25 12:11 07/26/25 14:28 Temperature 98.1 F 99.1 F 99.1 F Temperature Source Oral Oral Pulse Rate 96 H 92 H Pulse Rate [Right] 96 H Respiratory Rate 18 18 18 Blood Pressure 162/92 H 158/89 H Blood Pressure [Left Arm] 162/92 H Blood Pressure Mean [Left Arm] 115 Blood Pressure Source Automatic Cuff Blood Pressure Position Sitting 02 Sat by Pulse Oximetry 98 98 Oxygen Delivery Method Room Air Lab Data Lab Results 07/26/25 13:00: WBC 5.1, RBC 4.71, Hgb 14.6, Hct 42.9, MCV 91.1, MCH 31.0, MCHC 34.0, RDW 13.0, Plt Count 210, MPV 10.1, Neut % (Auto) 67.6, Lymph % (Auto) 21.7, [place] % (Auto) 7.3, Eos % (Auto) 2.4, Baso % (Auto) 0.4, Neut # (Auto) 3.4, Lymph # (Auto) 1.1, [place] # (Auto) 0.4, Eos # (Auto) 0.1, Baso # (Auto) 0.0, ESR 1, Sodium 141, Potassium 4.0, Chloride 106, Carbon Dioxide 28, Anion Gap 11.0, BUN 18, Creatinine 0.90, Estimated Creat Clear 105, Estimated GFR 83, Est GFR ( Amer) 100, Glucose 99, Calcium 9.9, Magnesium 1.9, Total Bilirubin 0.6, AST 29, ALT 21, Alkaline Phosphatase 48, Total Protein 7.3, Albumin 4.7, Globulin 2.6, Albumin/Globulin Ratio 1.8 Orders (Tests/Meds): ED MEDICATIONS Discontinued Medications Generic Name Dose Route Start Last Admin Trade Name Freq PRN Reason Stop Dose Admin Trimethoprim/Sulfamethoxazole 1 each 07/26/25 14:15 07/26/25 14:20 Sulfa/Trimethoprim 1 Tablet PO 07/26/25 14:16 1 each ONCE ONE Administration ORDERS Category Date Time Status Knee XR left 3 views [XR knee LT 3V] Stat Exams 07/26/25 12:26 Completed POCUS Point of Care (ER Only) Stat Exams 07/26/25 12:25 Completed CBC w/Auto Diff [Complete Blood Count Auto Diff] Stat Lab 07/26/25 13:00 Completed Comprehensive Metabolic Panel Stat Lab 07/26/25 13:00 Completed Erythrocyte Sedimentation Rate Stat Lab 07/26/25 13:00 Completed Magnesium Stat Lab 07/26/25 13:00 Completed Blood Culture Stat Micro 07/26/25 13:25 Received Critical Care <Joleen Ovalle (ED), U.S. REPRESENTATIVE - Last Filed: 07/26/25 17:28> Critical Care Time Critical Care Time: No
--- NOTE | 2025-07-26 12:26 | XR_ITS ---
PROCEDURE INFORMATION: Exam: XR Left Knee Exam date and time: 07/26/2025 12:31 PM Age: 70 years old Clinical indication: Injury or trauma; Other: Open wound on posterior aspect; Patella or knee; Left; Foreign body involvement not specified; Injury details: PT believes it is a spider bite; Prior surgery; Surgery date: 6+ months; Surgery type: Rep in 2020 TECHNIQUE: Imaging protocol: Radiologic exam of the left knee. Views: 3 views. COMPARISON: No relevant prior studies available. FINDINGS: Bones/joints: Patient is status post prior left total knee arthroplasty. Prosthesis appears intact and normally aligned. No acute fracture. No suspicious bone lesion. No bony erosion or destruction. Potential small suprapatellar joint effusion versus overlapping densities. Slight soft tissue fullness within the patellofemoral space may correspond to synovial proliferation or scarring. No opaque foreign body. Soft tissues: Mild subcutaneous edema along the posterior aspect of the knee. Small area of skin irregularity may correspond to reported wound. No underlying opaque foreign body. IMPRESSION: 1. Status post prior left total knee arthroplasty. Prosthesis appears intact and normally aligned. 2. Mild subcutaneous edema and small focal area of skin surface irregularity along the posterior aspect of the knee. This may correspond to underlying reported wound. No subcutaneous emphysema. No opaque foreign body.
[2025-07-26 13:12] LABS: Hematocrit 42.9 % (42.0-52.0); Hemoglobin 14.6 g/dL (14.1-18.0); Immature Granulocytes % 0.6 %; Mean Corpuscular HGB Conc 34.0 g/dL (31.8-35.4); Mean Corpuscular Hemoglobin 31.0 pg (27.0-31.2); Mean Corpuscular Volume 91.1 fl (80-94); Nucleated Red Blood Cells % 0 %; Platelet Count 210 K/mm3 (142-424); Red Blood Count 4.71 M/mm3 (4.60-6.20); Red Cell Distribution Width-SD 43.1 fL; White Blood Count 5.1 K/mm3 (4.8-10.8)
[2025-07-26 13:18] LABS: Albumin Level 4.7 g/dl (3.5-5.0); Chloride 106 mmol/L (98-107); Potassium 4.0 mmoL/L (3.5-5.1); Sodium 141 mmol/L (136-145)
[2025-07-26 13:20] LABS: Blood Urea Nitrogen 18 mg/dl (9-20)
[2025-07-26 13:21] LABS: Alanine Aminotransferase 21 U/L (12-78); Albumin/Globulin Ratio 1.8 (1.1-1.8); Alkaline Phosphatase 48 U/L (38-126); Anion Gap 11.0 mEq/L (5-15); Aspartate Amino Transferase 29 U/L (17-59); Bilirubin,Total 0.6 mg/dl (0.2-1.3); Calcium 9.9 mg/dl (8.4-10.2); Carbon Dioxide 28 mmol/L (22.0-30.0); Creatinine Clearance Estimated 105 mL/min (50-200); Creatinine,Serum 0.90 mg/dl (0.66-1.25); Estimated Glomerular Filt Rate 83 ml/min (>60); GFR (African American) 100 ML/MIN (>60); Globulin 2.6 g/dL (1.3-3.2); Glucose 99 mg/dl (74-100); Total Protein,Serum 7.3 g/dl (6.3-8.2)
[2025-07-26 13:38] LABS: Magnesium 1.9 mg/dl (1.6-2.3)
[2025-07-26] MEDS: SULFA/TRIMETHOPRIM 1 TABLET 1 EACH PO (14:20)
[2025-07-26 14:28] VITALS: BP 158/89; PULSE 92; RESP 18; TEMP 37.3; O2SAT 98
== END 2025-07-26 14:28 | disposition home or self-care (01) ==
PROVIDERS: Nurse Practitioner; Emergency Provider Student in an Organized Health Care Education/Training Program; PCP Family Medicine
DX: L03.90 Cellulitis, unspecified (principal)
CPT/HCPCS: 10060; 73562; 80053; 83735; 85025; 85651; 87040; 96374; 99284